=== PATIENT | male | born 1965 | race Caucasian/White ===

== ENCOUNTER 2017-04-14 09:57 | Outpatient (CLI) | payer BC ==
[2017-04-14 11:11] LABS: Hematocrit 46.1 % (42.0-52.0); Mean Platelet Volume 7.1 fL (7.4-10.4); Red Blood Cell (RBC) Count 4.68 mill/uL (4.70-6.10); White Blood Cell (WBC) Count 7.5 thou/uL (4.8-10.8)
--- NOTE | 2017-04-16 15:59 | EKG ---
Test Reason : Blood Pressure : / mmHG Vent. Rate : 071 BPM Atrial Rate : 071 BPM P-R Int : 158 ms QRS Dur : 090 ms QT Int : 370 ms P-R-T Axes : 043 064 030 degrees QTc Int : 402 ms Normal sinus rhythm Normal ECG No previous ECGs available Confirmed by DR. Luis ARIAS ([id number]) on 04/16/2017 3:58:43 PM Referred By: NEPTALI Confirmed By:DR. Luis ARIAS
== END 2017-04-14 09:58 | disposition home or self-care (01) ==
LOC: LABBT 09:57
PROVIDERS: ATTEND Orthopaedic Surgery
DX: Z01.818 Encounter for other preprocedural examination (principal); S83.242A Other tear of medial meniscus, current injury, left knee, initial encounter
CPT/HCPCS: 85027; 93005; 93010

== ENCOUNTER 2017-04-15 06:51 | Day surgery (SDC) | payer BC ==
[2017-04-15] MEDS ORDERED: CEFAZOLIN/Water 2 GM/20 ML SYRINGE ONE (08:35)
[2017-04-15] MEDS ORDERED: Midazolam HCl 2 mg/2 ml Vial ONE (09:37)
[2017-04-15] MEDS ORDERED: Fentanyl 100 MCG/2 ML VIAL ONE ×2 (09:37→10:07)
[2017-04-15] MEDS ORDERED: Lidocaine 2% MPF 10 ML AMP (For Epidural Use) ONE (10:07)
[2017-04-15] MEDS ORDERED: Ketorolac Tromethamine 30 MG/ML VIAL ONE (10:07)
[2017-04-15] MEDS ORDERED: Ondansetron HCl/PF 4 MG/2 ML Vial ONE (10:07)
[2017-04-15] MEDS ORDERED: Propofol 200 MG/20 ML VIAL ONE (10:07)
[2017-04-15] MEDS ORDERED: Lidocaine 2% w/Epinephrine 1:200K 20 ML VIAL ONE (10:16)
[2017-04-15] MEDS ORDERED: Bupivacaine PF 0.5% 30 ML VIAL ONE (10:16)
[2017-04-15] MEDS ORDERED: Lidocaine 1% (PF) 30 ML VIAL ONE (10:16)
--- NOTE | 2017-04-15 10:55 | OP ---
DATE OF PROCEDURE: 04/15/2017 PREOPERATIVE DIAGNOSIS: Left medial meniscus tear. POSTOPERATIVE DIAGNOSES: 1. Left medial meniscus tear degenerative. 2. 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 PROCEDURE PERFORMED: Debridement medial meniscus tear. STAFF: Royce Jarrett M.D. JEWEL BEARING POLISHER: None. ANESTHESIA: Vake, the patient received a LMA with 25 mL of 0.5% Marcaine plain preprocedure and 20 mL of lidocaine subcu intraarticular plain post-procedure. TOURNIQUET TIME: 17 minutes. ANTIBIOTICS: Ancef. COMPLICATIONS: None. HISTORY OF PRESENT ILLNESS: Mr. Morataya is a 52-year-old male with left knee pain. The pain has bee n present for about 2-1/2 months. The patient climbed a water tower, had pain and noted pain afterw ards, continue to have pain afterwards. MRI showed no full thickness cartilage defect, medial menis cus tear. I discussed with the patient the risks and benefits of a left knee arthroscopy to include pain, scar , bleeding, infection, damage to vital structures, decreased range of motion or strength, failure of procedure, continued pain despite surgical intervention. The patient understood the risks and bene fits and elected to proceed. PROCEDURE IN DETAIL: Timeout was performed designating the patient's left lower extremity as the op erative site based on sight, consents, markings. After completion of timeout, tourniquet was placed , had Marcaine placed intra-articularly. I then brought the tourniquet up. It was intraarticular v ersus in the patient's articular genu. The patient's tourniquet was brought up, it was left up for a total of 17 minutes. The patient's anterior lateral compartment was working portal was placed, an teromedial working portal was placed. I visualized the knee intraarticularly, I excised the fat pad , visualized the ACL and PCL which were intact, they had a grade I chondromalacia of the patella. T here were no defects or full thickness cartilage defects on the patellar trochlear groove, nothing i n the medial lateral compartment laterally. The patient had no lateral meniscus tear. Medially he did have a defect that was extension and flexion defect, they were both were grade II and grade I on his tibia. The patient had kind of degenerative tear of his medial meniscus which was debrided dayna k to stable remnant, had no other focus moving intraarticularly. I debrided the meniscus, took final pictures. I washed, let the tourniquet down, injected lidocaine plain intraarticularly in the subcu and closed with nylon stitches. The patient will be weightbearing as tolerated. The patient will follow up with me in 2 weeks.
== END 2017-04-15 12:17 | disposition home or self-care (01) ==
LOC: SDC 06:51
PROVIDERS: ATTEND Orthopaedic Surgery
PROC: 0SBD4ZZ Excision of Left Knee Joint, Percutaneous Endoscopic Approach (ICD-10-PCS; principal; 2017-04-15)
DX: S83.242A Other tear of medial meniscus, current injury, left knee, initial encounter (principal)
CPT/HCPCS: G8978-GP-CI; G8979-GP-CI; G8980-GP-CI; J1885; J2001; J2250; J2405; J2704; J3010; S0020

== ENCOUNTER 2019-01-13 07:58 | Outpatient (CLI) | payer BC, OTHER ==
[2019-01-13 08:54] LABS: Prothrombin Time 13.1 SEC (12.0-14.7)
--- NOTE | 2019-01-13 08:55 | ULT ---
ULTRASOUND ABDOMEN COMPLETE: HISTORY: 53-year-old male with elevated LFTs. TECHNIQUE: Hoff-scale ultrasound evaluation of the liver, gallbladder, spleen, pancreas, common bile duct, kidne ys, abdominal aorta, and inferior vena cava (IVC). FINDINGS: The gallbladder has normal wall thickness and has no evidence of gallstones or sludge. The hepatic e chogenicity is diffusely increased, consistent with fatty liver. The kidneys have normal echogenicit y, and there is no hydronephrosis. There is no splenomegaly. There is no abdominal aortic aneurysm. No free fluid is identified. The inferior vena cava is visualized. The pancreas is visualized, al though ultrasound is relatively insensitive for pancreatic pathology compared to CT and MRI. There is no biliary dilation. The common duct caliber is 5 mm. IMPRESSION: 1) Hepatic steatosis. 2) Otherwise negative. jn POS: CET
[2019-01-13 08:57] LABS: Lipase 37 U/L (8-78)
[2019-01-13 10:58] LABS: Iron 158 ug/dL (65-175); Iron Binding Capacity, Total 298 mcg/dL (261-462)
[2019-01-13 11:45] LABS: HBCM Index 0.05 S/CO (0-0.79); HBSAg Index 0.31 S/CO (0-0.99); Hep A IgM AB Non-Reactive (NonReactive); Hep A IgM S/CO 0.11 S/CO (0-0.79); Hep B Surf Ag Non-Reactive S/CO (NonReactive); Hep C IgG Ab Non-Reactive (NonReactive); Hep C Index 0.22 S/CO (0-0.79); Hepatitis B Core IgM Abs Non-Reactive (NonReactive)
[2019-01-13 16:20] LABS: ANA Symphony (Qualitative) Negative (Negative); ANA Symphony (Quantitative) 0.1 Ratio (< 0.7 Negative); dsDNA IgG Antibody Less than 0.5 IU/mL (<10 Negative)
== END 2019-01-13 07:59 | disposition home or self-care (01) ==
LOC: SCSULT 07:58
PROVIDERS: ATTEND Internal Medicine Gastroenterology
DX: Z12.11 Encounter for screening for malignant neoplasm of colon (principal); E78.1 Pure hyperglyceridemia; R94.5 Abnormal results of liver function studies; K76.0 Fatty (change of) liver, not elsewhere classified; Z72.89 Other problems related to lifestyle
CPT/HCPCS: 36415; 76700; 80074; 82390; 82728; 83540; 83550; 83690; 85610; 86038; 86225

== ENCOUNTER 2019-05-02 14:27 | Observation (INO) | payer BC ==
[2019-05-02 15:05] LABS: #Basophils 0.1 thou/uL (0.0-0.2); #Monocytes 0.5 thou/uL (0.11-0.59); #Neutrophils 5.7 thou/uL (1.40-6.50); %Basophils 0.8 % (0.0-1.0); %Eosinophils 0.5 % (0.0-10.0); %Lymphocytes 23.9 % (21.0-51.0); %Monocytes 6.1 % (0.0-10.0); %Neutrophils 68.7 % (42.0-75.0); Hemoglobin 14.4 g/dL (14.0-18.0); Mean Corpuscular Hemoglobin 33.5 pg (27.0-31.0); Mean Corpuscular Volume 95.9 fL (78.0-98.0); Mean Platelet Volume 7.2 fL (7.4-10.4); Platelet Count 201 thou/uL (130-400); RBC Distribution Width 11.9 % (11.5-14.5); White Blood Cell (WBC) Count 8.3 thou/uL (4.8-10.8)
[2019-05-02] MEDS ORDERED: Nitroglycerin 0.4 MG TAB 1 EACH ONE (15:30)
[2019-05-02 15:38] LABS: ALT (SGPT) 73 U/L (8-55); AST (SGOT) 93 U/L (5-34); Albumin 3.9 g/dL (3.5-5.0); Alkaline Phosphatase 76 U/L (40-110); Anion Gap 14 mmol/L (10-20); BUN (Urea Nitrogen) 7 mg/dL (8.4-25.7); Bilirubin, Total 0.7 mg/dL (0.2-1.2); Calc. Creatinine Clearance 0 mL/min (70-130); Calcium 8.9 mg/dL (7.8-10.44); Carbon Dioxide 25 mmol/L (22-29); Chloride 101 mmol/L (98-107); Estimated GFR-MDRD Greater than 90; Globulin 4.1 g/dL (2.4-3.5); Glucose 103 mg/dL (70-105); Lipase 70 U/L (8-78); Potassium 4.4 mmol/L (3.5-5.1); Sodium 136 mmol/L (136-145)
--- NOTE | 2019-05-02 15:42 | RAD ---
RADIOGRAPH CHEST 2 VIEWS: DATE: 05/02/2019 HISTORY: 54-year-old male with chest pain FINDINGS: There is no airspace density, pulmonary edema, pleural effusion, pneumothorax, or cardiomegaly. IMPRESSION: No acute cardiopulmonary findings.
[2019-05-02] MEDS ORDERED: Aspirin Chewable 81 MG TAB ONE (15:45)
[2019-05-02 16:02] LABS: Bilirubin Negative (Negative); Blood, Urine Negative (Negative); Clarity Clear (Clear); Glucose, Urine (Dipstick) Normal (Negative); Leukocyte Negative Leu/uL (Negative); Nitrite Negative (Negative); Protein, Urine (Dipstick) Negative (Neg-Trace); Urobilinogen Normal mg/dL (Less than 2)
[2019-05-02] MEDS ORDERED: Lidocaine Viscous Sol 2% 15 ml UD Cup ONE (18:00)
[2019-05-02] MEDS ORDERED: Mag-Al 1200 mg/1200 mg/30 ML UDCUP ONE (18:00)
[2019-05-02 19:03] LABS: Troponin I Less than 0.010 ng/mL (< 0.028)
[2019-05-02] MEDS ORDERED: Acetaminophen 325 MG TAB PO PRN (19:27)
[2019-05-02] MEDS ORDERED: Ondansetron ODT 4 MG TAB PO PRN (19:27)
[2019-05-02] MEDS ORDERED: Acetaminophen 650 MG Suppository PR PRN (19:27)
[2019-05-02] MEDS ORDERED: Ondansetron PF 4 MG/2 ML Vial IVP PRN (19:27)
[2019-05-02 19:30] VITALS: BMI 31.6
[2019-05-02 19:50] LABS: Amphetamine Not Detected (NotDetected); Barbiturates Screen Not Detected (NotDetected); Benzodiazepine Screen Not Detected (NotDetected); Cocaine Metabolite Screen Not Detected (NotDetected); Medtox Control Line Valid? VALID (VALID); Medtox Reader # READER 1; Methadone Not Detected (NotDetected); Methamphetamine Not Detected (NotDetected); Opiate Screen Not Detected (NotDetected); Oxycodone Screen Not Detected (NotDetected); Phencyclidine (PCP) Not Detected (NotDetected); THC/Cannabinoid Screen Not Detected (NotDetected); Tricyclic Screen Not Detected (NotDetected)
[2019-05-02] MEDS ORDERED: Lorazepam 1 MG TAB PO PRN (20:14)
[2019-05-02] MEDS: Famotidine/PF 20 mg/2ml Vial SLOW IVP SCH (20:33)
[2019-05-02] MEDS ORDERED: Atorvastatin Calcium 20 MG TAB PO SCH (21:00)
[2019-05-02 21:09] LABS: Troponin I Less than 0.010 ng/mL (< 0.028)
[2019-05-02] MEDS ORDERED: Morphine 2 MG/ML SYRINGE SLOW IVP SCH (21:45)
--- NOTE | 2019-05-02 23:02 | CT ---
EXAM: Abdomen and pelvic CT scan with contrast: HISTORY: Severe abdominal pain, transaminitis COMPARISON: None FINDINGS: The visualized lung bases are clear. Liver: Borderline enlarged. Gallbladder:Unremarkable. Pancreas:Abnormal fat stranding and fluid density adjacent to the tail of the pancreas and extending caudally overlying the left anterior pararenal fascia raising concern for the possibility of acute pancreatitis. No pancreatic mass. Spleen:Unremarkable. Adrenal glands:Unremarkable. Kidneys:No renal calculus or acute obstruction. Small, approximately 1 cm diameter exophytic nodular density off the posterior lower pole of the righ t kidney not definitively characterized, if the patient has hematuria or if there is clinical concern, follow-up nonemergent with and without contrast CT scan with renal mass protocol might be of benefit. Small fat-containing umbilical hernia. Disc osteophyte at L4-L5 with associated canal stenosis, severe No evidence for bowel obstruction. No CT evidence for acute appendicitis. The urinary bladder is unremarkable. Reproductive system:Unremarkable No abscess, adenopathy, or abnormal fluid collection within the abdomen or pelvis. IMPRESSION: Fat stranding and some fluid density extending from the tail of the pancreas caudally concerning for acute pancreatitis, correlate with pancreatic enzymes. Borderline hepatomegaly. Incompletely characterized small 1 cm exophytic nodular focus of the posterior lower pole of the righ t kidney. Follow-up as above. Other findings as above.
[2019-05-02] MEDS ORDERED: Sodium Chloride 0.45% 1,000 ML IV SCH (23:30)
--- NOTE | 2019-05-03 00:11 | HP ---
PRIMARY CARE PHYSICIAN: Samina Crowell MD. TIME OF ASSESSMENT: 1800 hours. CHIEF COMPLAINT: Epigastric pain/chest pain. HISTORY OF PRESENT ILLNESS: Mr. Morataya is a 54-year-old gentleman, who reports having epigastric discomfort that started yesterday after dinner. The patient states he thought it was indigestion and states it was tolerable. He reports having some mild chest discomfort, which he states was substernal and nonradiating; however, reports experiencing pain below the left shoulder blade. The patient states he went to sleep and in the morning, continued to have some epigastric discomfort. He has sought advice from his primary care physician, who advised that he come into the emergency department due to concerns for ACS given his comorbidities and heavy alcohol use as well as tobacco use. The patient states that the pain occurred again after lunch. He states it was more intense and reports having another episode of substernal chest pain prior to coming into the emergency department, which he states was 8/10 in severity. He reports having no relief with initial medications given including aspirin and nitroglycerin. The patient was contemplating leaving against medical advice, but agreed to try GI cocktail as he felt it was GI related. He had minimal improvement with a GI cocktail, therefore, agreeable to stay for further ACS workup. EKG done in the emergency department showed normal sinus rhythm with a heart rate of 75. No ST changes or T-wave abnormalities present. Chest x-ray was unremarkable. He had laboratory studies done that showed a normal full blood count. He had a sodium of 136, potassium 4.4, BUN 7, creatinine 0.82, GFR greater than 90. LFTs were notable for an AST of 93, ALT of 73, total bilirubin normal, alkaline phosphatase 76, lipase normal at 70. Initial troponin negative. Albumin 3.9. Urinalysis done and unremarkable. Urine drug screen also negative. REVIEW OF SYSTEMS: The patient denies having any recent fevers, chills, or sweats. Denies having any shortness of breath. Reports an occasional dry cough, which is chronic. He reports chronic swelling in the left lower extremity, which he states is due to fluid retention. Has not noted any calf pain or tenderness. He did have a long car ride to the [place] one week ago. Denies any hemoptysis. No palpitations. No lightheadedness or dizziness. No recent fevers, chills, or sweats. No changes with his stools such as diarrhea or constipation. No blood in the stools. No urinary symptoms. All other review of systems apart from those mentioned above in HPI are negative. PAST MEDICAL HISTORY: 1. Hypertension. 2. History of hyperlipidemia, the patient previously on a statin, but states he discontinued it due to leg cramping. 3. Heavy alcohol use, daily. 4. Smoker. PAST SURGICAL HISTORY: Knee surgery. SOCIAL HISTORY: The patient lives with his family. He reports drinking 10 to 12 beers a day. States he has not had any alcohol since Wednesday and denies experiencing any type of withdrawal symptoms. No history of alcohol withdrawal seizures. Reports smoking less than he did previously about 2 to 3 cigarettes a day. Denies any drug use. ALLERGIES: NO KNOWN DRUG ALLERGIES. CURRENT MEDICATIONS: Lisinopril 20 mg p.o. daily. PHYSICAL EXAMINATION: GENERAL: The patient appears well developed, well nourished, is in no acute distress. VITAL SIGNS: Temperature 98.6, pulse 73, respirations 18, O2 saturation 97% on room air, blood pressure 155/79. HEENT: Normocephalic and atraumatic. Pupils are equal, round, and reactive to light. Sclerae without icterus. Oropharynx is clear. NECK: Supple without lymphadenopathy. LUNGS: Clear to auscultation bilaterally without wheezes, rales, or rhonchi. CARDIAC: Regular rate and rhythm without audible murmurs, rubs, or gallops. ABDOMEN: Soft, nontender, nondistended. Normoactive bowel sounds present. EXTREMITIES: No lower leg swelling or edema. NEUROLOGIC: Alert and oriented x3. SKIN: Without rash or jaundice. LABORATORY DATA: White blood count 8.3, hemoglobin 14.4, hematocrit 41.2, platelets 201, neutrophils 68.7. Sodium 136, potassium 4.4, anion gap 14, creatinine 0.82, GFR greater than 90, glucose 103, calcium 8.9, total bilirubin 0.7, AST 93, ALT 73, alkaline phosphatase 76. Troponin negative x1. Albumin 3.9. Lipase 70. IMAGING DATA: As mentioned above in HPI. IMPRESSION AND PLAN: Mr. Morataya is a 54-year-old gentleman with history of hypertension and hyperlipidemia, also obesity, and with heavy alcohol use as well as tobacco use. The patient with epigastric pain and chest pain, referred for the following. 1. Acute coronary syndrome ruled out. The patient with normal chest x-ray and unremarkable EKG. Troponin negative x1. We will continue to trend troponins. The patient has never undergone any cardiac workup and also has a strong family history of coronary artery disease. We will plan for stress test in the morning. We will also add D-dimer given recent long trip to the [place]. 2. Epigastric pain. The patient with transaminitis, felt to be attributed to alcohol intake. It seems to be worse after meals. Discuss further with Dr. Mathew, who agreed with plans for CT imaging of the abdomen. If negative, would likely benefit from consultation with GI for EGD in the event that it is due to gastritis. We will plan to repeat LFTs and lipase in the morning. 3. Hypertension. Resume home medications and monitor blood pressure. 4. Hyperlipidemia. The patient previously stopped statin due to lower extremity cramping and does not wish to be restarted on this medication. We will check lipid panel with morning labs. 5. Deep venous thrombosis prophylaxis. Awaiting D-dimer. The patient is ambulatory. 6. Code status full. Surrogate decision maker is his , Billie Morataya. The patient's case was discussed with Dr. Mathew, who agrees with plan of care as described above. Job ID: [id number]
[2019-05-03 05:03] LABS: #Basophils 0.1 thou/uL (0.0-0.2); #Eosinphils 0.1 thou/uL (0.0-0.7); #Monocytes 0.7 thou/uL (0.11-0.59); %Basophils 0.6 % (0.0-1.0); %Eosinophils 0.7 % (0.0-10.0); %Lymphocytes 22.4 % (21.0-51.0); %Monocytes 7.8 % (0.0-10.0); %Neutrophils 68.5 % (42.0-75.0); Hemoglobin 13.5 g/dL (14.0-18.0); Mean Corpuscular HGB CONC 34.4 g/dL (32.0-36.0); Mean Corpuscular Hemoglobin 33.3 pg (27.0-31.0); Mean Corpuscular Volume 96.7 fL (78.0-98.0); Mean Platelet Volume 7.3 fL (7.4-10.4); Platelet Count 177 thou/uL (130-400); RBC Distribution Width 11.9 % (11.5-14.5); Red Blood Cell (RBC) Count 4.07 mill/uL (4.70-6.10); White Blood Cell (WBC) Count 8.8 thou/uL (4.8-10.8)
[2019-05-03 05:27] LABS: ALT (SGPT) 58 U/L (8-55); AST (SGOT) 69 U/L (5-34); Albumin 3.5 g/dL (3.5-5.0); Alkaline Phosphatase 70 U/L (40-110); Bilirubin, Direct 0.3 mg/dL (0.1-0.3); Bilirubin, Total 0.7 mg/dL (0.2-1.2); Protein, Total 6.9 g/dL (6.0-8.3)
[2019-05-03 05:28] LABS: Anion Gap 12 mmol/L (10-20); BUN (Urea Nitrogen) 5 mg/dL (8.4-25.7); Calc. Creatinine Clearance 155 mL/min (70-130); Calcium 8.4 mg/dL (7.8-10.44); Carbon Dioxide 25 mmol/L (22-29); Chloride 102 mmol/L (98-107); Cholesterol 174 mg/dl (< 200 Desired); Estimated GFR-MDRD Greater than 90; Glucose 111 mg/dL (70-105); HDL Cholesterol 29 mg/dL (>60 Neg Risk); Lipase 54 U/L (8-78); Potassium 3.9 mmol/L (3.5-5.1); Sodium 135 mmol/L (136-145); Triglycerides 468 mg/dL (Less than 150)
--- NOTE | 2019-05-03 07:41 | ULT ---
PRELIMINARY REPORT/[facility]/EMERGENCY AFTER HOURS PROCEDURE PROCEDURE INFORMATION: Exam: US Abdomen Limited, Right Upper Quadrant Exam date and time: 05/02/2019 11:48 PM Age: 54 years old Clinical history: Constipation; Abdominal pain; Epigastric TECHNIQUE: Imaging protocol: Real-time ultrasound of the abdomen with image documentation. Examination was focused on the right upper quadrant. COMPARISON: No relevant prior studies available. FINDINGS: Liver: The hepatic parenchyma is echogenic consistent with diffuse fatty liver and there is hepatomegaly with liver length 20.3 cm. Gallbladder: Normal. No gallstones. There is no gallbladder wall thickening. Negative sonographic Suarez's. Common bile duct: Normal. No stones. No dilation. Pancreas: The pancreas is obscured by overlying bowel gas. Right kidney: Normal. No mass. No hydronephrosis. IMPRESSION: No acute sonographic pathology. Thank you for allowing us to participate in the care of your patient. Dictated and Authenticated by: Luis Méndez MD 05/03/2019 12:33 AM Central Time ([place] & [place]) FINAL REPORT IMPRESSION: Final report is in agreement with the above provided preliminary interpretation. Code QA Transcribed Date/Time: 05/03/2019 7:59 AM
[2019-05-03] MEDS ORDERED: Lisinopril 20 MG TAB PO SCH (09:00)
[2019-05-03] MEDS ORDERED: Aspirin 81 mg Enteric Coated Tablet PO SCH (09:00)
--- NOTE | 2019-05-03 09:37 | PRG ---
DATE OF SERVICE: 05/03/2019 SUBJECTIVE: Feels some better today. Abdominal pain has improved. No chest pain, no palpitations. OBJECTIVE: VITAL SIGNS: Temperature is 98.5, pulse 73, respirations 16, O2 saturation 96% on room air, blood pressure is 157/82. GENERAL APPEARANCE: Age-appropriate male. Awake, alert, oriented, pleasant, cooperative. HEART: Regular rate and rhythm without murmurs. LUNGS: Clear bilaterally. ABDOMEN: Soft, nontender, and nondistended. EXTREMITIES: No edema. LABORATORY DATA: White count 8.8, hemoglobin is 13.5. D-dimer is 0.27. Chemistries notable for glucose of 111. AST 69, ALT 58, alkaline phosphatase 70. Troponins negative x3. Triglycerides 468, cholesterol 174, HDL 29. Abdominal ultrasound was unremarkable. IMPRESSION AND PLAN: 1. The patient presented with epigastric abdominal pain, also reported some lower abdominal pain. Both of those seem to be improved at the moment. CT is negative. His troponins are negative. He is getting a stress test today to evaluate for possible ischemic coronary artery disease. Given some risk factors , GI consult is pending; however, if a stress test is negative with the improvement of the symptoms, would not delay the search of that. 2. Metabolic syndrome. The patient has borderline hyperglycemia, high triglycerides, low HDL, so this is consistent with metabolic syndrome. I had a long discussion with the patient's regarding lifestyle changes. Discussed medications. He follows with Dr. Crowell. It is recommended that he follow up there in order to have these discussions as an outpatient to consider nonstatin medications for his cholesterol and consideration such as Vascepa and consideration for medications like metformin, but again we will defer that to his primary provider. Job ID: [id number] MTDD
[2019-05-03] MEDS ORDERED: PROPOFOL 200 MG/20 ML VIAL ONE (10:13)
[2019-05-03] MEDS: Famotidine/PF 20 mg/2ml Vial SLOW IVP SCH (11:51)
[2019-05-03] MEDS ORDERED: ADENOSINE 60 MG/20 ML VIAL ONE (12:00)
[2019-05-03 12:03] VITALS: TEMP 98.6
--- NOTE | 2019-05-03 12:05 | NM ---
EXAM: CARDIAC SPECT HISTORY: Chest pain, hypertension, dyslipidemia, smoker TECHNIQUE: A myocardial perfusion scan was performed using the single isotope 1 day protocol with rigo hnetium 99m sestamibi. [10 mCi] was injected intravenously for the rest exam followed by 30 mCi for the stress study. Pharmacologic stress with adenosine was monitored and interpreted by DEANDRA Carmen FINDINGS: Homogeneous tracer distribution is seen in the myocardial segments on stress and rest image s without fixed or reversible defects. Gated SPECT LVEF: 65% Wall motion exam: Normal IMPRESSION: Normal myocardial perfusion scan
[2019-05-03 16:23] VITALS: BP 150/85
--- NOTE | 2019-05-03 19:42 | OP ---
DATE OF PROCEDURE: 05/03/2019 PREOPERATIVE DIAGNOSES: Abdominal pain, chest pain. He has had negative abdominal CAT scan. Negative abdominal sonogram. Negative nuclear stress test today. Also his serum lipase is normal. The patient is undergoing esophagogastroduodenoscopy because of the above reason. POSTOPERATIVE DIAGNOSIS: Normal exam. PROCEDURE PERFORMED: Esophagogastroduodenoscopy. DESCRIPTION OF PROCEDURE: The patient was placed on his left lateral position and was given sedation by Anesthesia Department. A Pentax video gastroscope under direct vision passed down the oropharynx past the GE junction into the stomach and subsequently into the descending duodenum. The vocal cords appeared very healthy. The esophageal mucosa appeared normal. No esophagitis seen. The GE junction, no lesion seen. Retroflexion failed to show any pathology in fundus and cardia. The gastric body, gastric antrum, no lesion seen. The incisura angularis, no lesions. The duodenum including the bulb and descending part, no lesion seen. Endoscopic impression, normal exam. RECOMMENDATION: 1. Diet as tolerated. 2. From GI standpoint, he can be discharged home later on today. Job ID: [id number]
--- NOTE | 2019-05-04 07:45 | CON ---
DATE OF CONSULTATION: 05/03/2019 ADDITIONAL REFERRING PHYSICIAN: Dr. Edwin Castro. REASON FOR CONSULTATION: Abdominal pain, chest pain, negative Cardiology evaluation including stress testing. HISTORY OF PRESENT ILLNESS: Mr. Shade Morataya is a very pleasant 54-year-old male, who is a regular patient of Dr. Samina Crowell. The patient was started having abdominal pain and lower chest pain on Wednesday after lunch. The pain lasted off and on through Wednesday. He went to sleep and he woke up the next morning Wednesday, and he began having abdominal pain. The pain got worse after lunchtime. He feels more like indigestion and sharp pain. The pain was persistent. He tried taking some aspirin, some nitroglycerin, it did not help. The patient is known to have hyperlipidemia. The patient saw Dr. Samina Crowell yesterday and was advised to come to the ER because of chest pain and abdominal pain. The patient had undergone extensive evaluation since admission. His EKG is normal. His serum troponin level is normal. He had a stress nuclear testing done, which came back negative. Abdominal CAT scan and abdominal sonogram show no pathology. The patient is actually feeling better today. His abdominal pain has almost resolved. The patient is having some indigestion, some dyspepsia off and on. He usually takes some laok-buc-odpyomo PPI and also some antacids off and on. His bowel movements are fairly regular. The patient is known to have hyperlipidemia and was seen by Dr. Crowell. He tells me his triglyceride level was as high as 1100. However, during this admission, it has come down to around 400. The patient was taking fenofibrate before, but it was discontinued and was placed on statin. He also has myalgias on statins and stopped taking the medication for a while. He is not taking any medicines for the hyperlipidemia at the present time. He has no prior history of any pancreatitis. No prior history of any ulcer disease. He does drink alcohol 2 six pack of beer on a daily basis. He was found to have elevation of LFTs and was seen by Dr. Romana Hoang recently. She advised him to stop drinking completely and also . The patient has not really followed up. The patient has no relevant history. MEDICAL ILLNESSES: 1. Hypertension. 2. Hyperlipidemia. 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 4. Smoker. SURGERIES: Knee surgeries in the past. SOCIAL HISTORY: The patient is . He is a smoker. He was drinking 2 six-pack of beer every day. Apparently, he has cut down to drinking to at least 2 or 3 times a week. He has no history of drug abuse. ALLERGIES: NONE. MEDICATIONS: At the time of admission include lisinopril 20 once a day. SYSTEM REVIEW: CONSTITUTIONAL: No fever, no weight loss. He has good exercise tolerance. HEENT: No chronic headache. No syncope. No TIA. Eyes, no diplopia, no double vision, no impaired vision. Ears, no hearing loss. Nose, no nose bleed. Throat, no sore throat or any dysphagia. NECK: No stiffness or any limitation of movement. LUNGS: No chronic coughing. No hemoptysis. No dyspnea. CARDIOVASCULAR: Chest pain of recent onset with negative Cardiology evaluation. His nuclear stress test came back negative. He has no history of dyspnea, orthopnea, or PND. GI: Abdominal pain. No nausea, no vomiting. His bowel movements are regular. No hematochezia. : No dysuria, hematuria, or frequency of urination. MUSCULOSKELETAL: Nonrelevant. NEUROENDOCRINE: Nonrelevant. PHYSICAL EXAMINATION: GENERAL: He appears comfortable. He is awake, alert, and communicative. VITAL SIGNS: He is afebrile. Pulse is 73, blood pressure is 150/70. HEENT: Conjunctivae are clear. NECK: Supple. No adenitis or thyromegaly noted. CARDIOVASCULAR SYSTEM: First and second heart sounds heard. LUNGS: Clear to auscultation. ABDOMEN: Soft. Abdomen is mildly tender over the epigastric area. There is no rebound or guarding. No organomegaly. No masses. Bowel sounds are normal. EXTREMITIES: Reveal no edema. LABORATORY DATA: On admission showed WBC of 8300, hemoglobin 14.4, hematocrit 41.2, MCV 95.9, platelet count 201,000, polymorphs 68, lymphocytes 23. Chemistries; normal lytes, glucose is 111, calcium 8.4. Triglycerides 468. Lipase 54. LFTs, AST 69, ALT 58. Abdominal sonogram and CAT scan negative. Nuclear stress test came back negative. EKG, troponin level are normal. CLINICAL IMPRESSION: 1. Abdominal pain with negative Cardiology evaluation. The patient has abdominal pain over the last 48 hours. The pain was severe enough to make him coming to the ER. He has no evidence of pancreatitis. 2. Hypertension. 3. Hyperlipidemia. I have talked with Mr. Morataya about having EGD. He is n.p.o. and he is agreeable. I will plan for EGD today and hopefully can be discharged home later this afternoon. I also had a long talk with Mr. Morataya, explained him regular exercise, low carb diet, and also taking some statin, get back of fenofibrate to control the triglyceride level. Job ID: [id number]
--- NOTE | 2019-05-04 15:11 | DIS ---
DATE OF ADMISSION: 05/02/2019 DATE OF DISCHARGE: 05/03/2019 DISCHARGE DIAGNOSES: 1. Abdominal pain. 2. Metabolic syndrome. 3. Hypertension. 4. Hyperlipidemia with statin intolerance. 5. Tobacco abuse. 6. Alcohol abuse. 7. 1 cm exophytic nodules seen on the right kidney, but absent on ultrasound. 8. Fat stranding with fluid density extending from the tail of the pancreas, but with normal lipase. IMAGIN. Nuclear medicine stress test negative with an ejection fraction of 65%. 2. Abdominal ultrasound negative. 3. CT abdomen and pelvis revealing fat stranding and some fluid density extending from the tail of the pancreas caudally concerning for acute pancreatitis. Borderline hepatomegaly incompletely characterized. Small 1 cm exophytic nodular focus of the posterior pole of the right kidney. CONSULTATIONS: GI. PROCEDURES: EGD with normal results. HISTORY OF PRESENT ILLNESS: This patient is a 54-year-old male with a history of hypertension, hyperlipidemia, tobacco abuse and alcohol abuse, who presented to the hospital with abdominal pain, which was both epigastric and lower abdominal pain. The patient had the initial CT scan findings as noted above, as well as a negative chest x-ray. He did not have significant findings on exams. White count was normal. Lipase was normal. Troponin was negative. HOSPITAL COURSE: The patient was placed on observation and had serial cardiac isoenzymes which were unremarkable. He had a nuc med stress test which was negative and revealed an EF of 65%. Subsequently had abdominal ultrasound which failed to show any pathology of the kidneys. He had an EGD by GI, which was essentially normal. I had a long conversation with the patient regarding his overall metabolic syndrome and the need to discontinue smoking and dramatically minimize his alcohol consumption. We also discussed the findings on his CT with the possible renal lesion, which did not demonstrate on ultrasound, but he needed to have follow up on that with his primary care provider as well. With that, the patient was felt to be stable for discharge home. PHYSICAL EXAMINATION: VITAL SIGNS: At the time of discharge, temperature 98.6, pulse 78, BP 150/85, respirations 13, O2 saturation 99% on room air. GENERAL: He was awake, alert, oriented. HEART: Regular rate and rhythm. LUNGS: Clear. ABDOMEN: Benign. DISPOSITION: The patient is discharged to home. He will be on a heart healthy diet. ACTIVITY: As tolerated. He will be on his usual home medications without change, although he is encouraged to follow up with his PCP to talk about medications to address the metabolic syndrome. He will follow up with Samina Crowell and he can return to the hospital at any time should he feel the need to do so. Job ID: [id number]
== END 2019-05-03 16:48 | disposition home or self-care (01) ==
LOC: ERS 14:27 → 2SW 19:15
PROVIDERS: ADMIT Internal Medicine; ATTEND Internal Medicine
PROC: 0DJ08ZZ Inspection of Upper Intestinal Tract, Via Natural or Artificial Opening Endoscopic (ICD-10-PCS; principal; 2019-05-03)
DX: R10.13 Epigastric pain (principal); R10.30 Lower abdominal pain, unspecified; R07.89 Other chest pain; E88.81 Metabolic syndrome and other insulin resistance; I10 Essential (primary) hypertension; E78.5 Hyperlipidemia, unspecified; F17.210 Nicotine dependence, cigarettes, uncomplicated; K70.9 Alcoholic liver disease, unspecified; Z88.2 Allergy status to sulfonamides
CPT/HCPCS: 36415; 71046; 74176; 76705; 78452; 80048; 80053; 80061; 80076; 80306; 81003; 83690; 83735; 84484; 85025; 85379; 93005; 93017; 96360; 96361; 96374; 96375; 96376; A9500; G0378; J0153; J2270; J2704; S0028